=== PATIENT | male | born 1990 | race African-American/Black ===

== ENCOUNTER 2019-09-13 22:01 | Emergency (ER) | payer SELFPAY ==
[~2019-09-13] VITALS: Ht 172.7 cm; Wt 86.2 kg
[2019-09-13 22:05] VITALS: BP 169/116
--- NOTE | 2019-09-13 22:09 | NUR ---
PT BIBA TO ER BED 11
--- NOTE | 2019-09-13 22:21 | NUR ---
PT PLACED ON 3 LEAD ECG AND PULSE OX.
--- NOTE | 2019-09-13 22:26 | NUR ---
29 Y/M PRESENTS TO ED FOR ANXIETY S/P TAKING EXTASY AT 1200 X 1 DAY. PT ALSO REPORTS TAKING 3 SHOTS OF ALCOHOL AROUND 1300. PT REPORTS HE STARTED FEELING CHEST PRESSURE 9/10 THAT RADIATED TO HEAD X 1 HOUR. PT ALSO REPORTS NAUSEA, AND VOMIT X 1 EPISODE. PT ALSO REPORTS SOB. PT A &O X 4. RR EVEN AND LABORED. LUNGS CLEAR, ABD SOFT. SKIN INTACT, WARM AND DRY TO TOUCH, DENIES DYSURIA AND HEMATURIA. NKDA PMH- DENIES
--- NOTE | 2019-09-13 22:47 | NUR ---
EKG PERFORMED AT BEDSIDE
[2019-09-13] MEDS ORDERED: NACL 0.9% 1,000 ML IV ONE (23:00)
[2019-09-13] MEDS ORDERED: ONDANSETRON 4 MG/2 ML VIAL IVP ONE (23:00)
--- NOTE | 2019-09-13 23:12 | NUR ---
STAT LABS DRAWN AND GIVEN TO AJ FROM LAB.
--- NOTE | 2019-09-13 23:31 | NUR ---
DR. KIRK AT BEDSIDE.
[2019-09-13 23:36] LABS: BARBITURATE, URINE NEGATIVE ng/ml (NEG <=200); BENZODIAZEPINE, URINE NEGATIVE ng/mL (NEG <=200); CANNABINOID, URINE NEGATIVE ng/mL (NEG <=50); COCAINE, URINE NEGATIVE ng/mL (NEG <=300); OPIATE, URINE NEGATIVE ng/mL (NEG <=2000); PHENCYCLIDINE SCREEN,URINE NEGATIVE ng/mL (NEG <=25)
[2019-09-13] MEDS ORDERED: LORazepam 2 MG/ML VIAL IVP ONE (23:45)
[2019-09-14 00:49] VITALS: BP 134/93
--- NOTE | 2019-09-14 00:49 | NUR ---
Patient discharged with v/s stable. Written and verbal after care instructions given and explained. Patient verbalized understanding. Ambulatory with steady gait. All questions addressed prior to discharge. Advised to follow up with PMD.
== END 2019-09-14 00:49 | disposition home or self-care (01) ==
LOC: MED 22:01
DX: F19.10 Other psychoactive substance abuse, uncomplicated (principal); F17.210 Nicotine dependence, cigarettes, uncomplicated; R53.1 Weakness
CPT/HCPCS: 80305; 96361; 96374; 96375; 99284; J2060; J2405; J7030